=== PATIENT | female | born 1980 | race Caucasian/White ===

== ENCOUNTER 2016-10-24 19:18 | Emergency (ER) | payer OTHER ==
[~2016-10-24] VITALS: Ht 170.2 cm; Wt 59.3 kg
[2016-10-24 19:38] VITALS: BP 105/71; PULSE 87; RESP 18; TEMP 98; O2SAT 99
[2016-10-24] MEDS ORDERED: TETANUS/DIPHTHERIA TOXOID ADULT 0.5 ML VIAL IM ONE (19:45)
--- NOTE | 2016-10-24 20:04 | PD ---
HPI Chief Complaint: Laceration/Skin Injury Time Seen by Provider: 19:56 Travel History International Travel<30 days: No Contact w/Intl Traveler<30days: No Traveled to known affect area: No History of Present Illness HPI 36-year-old female presents to the emergency room for evaluation of laceration to the left third, dorsal finger that occurred just prior to arrival. Patient was trying to open a can with a butter knife when the knife slipped cutting her finger. She states it bled a lot. She washed it with alcohol and applied pressure. Last tetanus was greater than 5 years ago. Patient denies chronic medical conditions or daily medications. [facility] Past Medical History Medical History: Denies Significant Hx Diminished Hearing: No Immunizations Current: Yes Tetanus Vaccination: > 5 Years Influenza Vaccination: No ?: Not LMP: 09-27-16 Past Surgical History Surgical History: No Previous Surgery Social History Alcohol Use: Yes ([facility]) Tobacco Use: No Substance Use: No Allergies-Medications (Allergen,Severity, Reaction): Coded Allergies: No Known Allergies (Verified , 10/24/16) Reported Meds & Prescriptions Reported Meds & Active Scripts Active No Active Prescriptions or Reported Medications Review of Systems Except as stated in HPI: all other systems reviewed are Neg Physical Exam Narrative GENERAL: Well-nourished, well-developed female in no acute distress. Afebrile. Ambulatory. SKIN: Focused skin assessment warm/dry. There is a 1 cm very superficial laceration to the left third dorsal finger. It is between the PIP and DIP joints. Less than 2 second capillary refill distally. HEAD: Normocephalic. EYES: No scleral icterus. No injection or drainage. NECK: Supple, trachea midline. No JVD or lymphadenopathy. CARDIOVASCULAR: Regular rate and rhythm without murmurs, gallops, or rubs. RESPIRATORY: Breath sounds equal bilaterally. No accessory muscle use. PSYCHIATRIC: No delusional thought processes. No hallucinations. Data Data Last Documented VS Vital Signs Date Time Temp Pulse Resp B/P Pulse Ox O2 Delivery O2 Flow Rate FiO2 10/24/16 19:38 98.0 87 18 105/71 99 Orders Tetanus/Diphtheria Tox Adult (Tetanus/Di (10/24/16 19:45) MDM Medical Decision Making Medical Screen Exam Complete: Yes Emergency Medical Condition: Yes Medical Record Reviewed: Yes Differential Diagnosis Laceration versus abrasion versus tendon injury Narrative Course 36-year-old female presents to the emergency room for evaluation of laceration to the left third finger that occurred just prior to arrival. Patient cut herself with a butter knife. Tetanus updated. Physical exam reveals a 1 cm very superficial laceration on the dorsal left third digit between the proximal and distal interphalangeal joints. It is nonbleeding. Wound is amenable to glue repair. Wound care performed and wound was repaired. Patient was discharged with wound care instructions and told to follow up with primary care physician and return for worsening symptoms. She understands and agrees to plan. Diagnosis Primary Impression: Laceration of finger of left hand Qualified Code: S61.219A - Laceration of finger of left hand, initial encounter Referrals: Primary Care Physician Patient Instructions: Finger Laceration (ED), General Instructions Additional Instructions: Rest and drink plenty of fluids. Keep wound clean and dry. Apply triple antibiotic ointment when the glue and Steri-Strips fall off. Do not pick at them. Follow-up with a primary care physician. Return to the emergency room for worsening symptoms. Med/Other Pt SpecificInfo: Wound Care Scripts No Active Prescriptions or Reported Meds Disposition: 01 DISCHARGE HOME Condition: Stable Bella Leger October 24, 2016 20:04
== END 2016-10-24 20:13 | disposition home or self-care (01) ==
LOC: PHEFT 19:18
DX: S61.213A Laceration without foreign body of left middle finger without damage to nail, initial encounter (principal); Z23 Encounter for immunization; W26.0XXA Contact with knife, initial encounter; Y93.89 Activity, other specified; Y92.89 Other specified places as the place of occurrence of the external cause; Y99.8 Other external cause status
CPT/HCPCS: 12001; 90471; 90714

== ENCOUNTER → 2016-11-02 | Outpatient (CLI) | payer OTHER ==
[2016-11-02 14:55] LABS: AUTOMATED NEUTROPHIL # 5.9 TH/MM3 (1.8-7.7); BASOPHIL % 0.2 % (0.0-2.0); EOSINOPHIL % 0.4 % (0.0-4.0); HEMATOCRIT 41.8 % (35.0-46.0); HEMO FLAGS DIFF FINAL; LYMPH % 27.7 % (9.0-44.0); LYMPHOCYTE # 2.6 TH/MM3 (1.0-4.8); MONO % 8.2 % (0.0-8.0); NEUT % 63.5 % (16.0-70.0); PLATELET COUNT 225 TH/MM3 (150-450); WHITE BLOOD COUNT 9.4 TH/MM3 (4.0-11.0)
[2016-11-02 15:15] LABS: APTT (PATIENT) 29.1 SEC (24.3-30.1); INTERNATIONAL NORMALIZED RATIO 0.9 RATIO; PROTHROMBIN TIME - PATIENT 10.3 SEC (9.8-11.6)
[2016-11-02 15:22] LABS: ALT (GPT) 20 U/L (10-53); ANION GAP 6 MEQ/L (5-15); AST (GOT) 17 U/L (15-37); BICARBONATE 29.6 MEQ/L (21.0-32.0); BLOOD UREA NITROGEN 10 MG/DL (7-18); CHLORIDE 103 MEQ/L (98-107); GLOMERULAR FILTRATION RATE 76 ML/MIN (>89); GLUCOSE,FASTING 90 MG/DL (74-99); POTASSIUM 3.8 MEQ/L (3.5-5.1); SODIUM (NA) 139 MEQ/L (136-145)
[2016-11-02 15:26] LABS: ALKALINE PHOSPHATASE 64 U/L (45-117); TOTAL BILIRUBIN ADULT 0.4 MG/DL (0.2-1.0)
[2016-11-02 15:35] LABS: BHCG SCREEN QUALITATIVE LESS THAN 1 MIU/ML (0-5)
== END ==
LOC: CPRE 14:01
PROVIDERS: ATTEND Obstetrics & Gynecology Gynecologic Oncology
DX: Z01.812 Encounter for preprocedural laboratory examination (principal); D06.9 Carcinoma in situ of cervix, unspecified
CPT/HCPCS: 36415; 80053; 84703; 85025; 85610; 85730

== ENCOUNTER → 2016-11-04 | Day surgery (SDC) | payer OTHER ==
[~2016-11-04] VITALS: Ht 170.2 cm; Wt 57.3 kg
[~2016-11-04] MED LIST: ACETAMINOPHEN 1000 MG/100 ML VIAL IV ONE; CHLORHEXIDINE GLUCONATE 2 % 1 PACK (2 CLOTHS) TOPICAL PRN; DEXAMETHASONE SOD PHOS 4 MG/ML VIAL ONE; DICLOFENAC SODIUM 37.5 MG/ML VIAL IV PUSH ONE; DO NOT ADM ANY ANTICOAGULANT DRUGS PRN; FAMOTIDINE 20 MG/2 ML VIAL ONE; FERRIC SUBSULFATE 8 ML TOP SOLN ONE; INSULIN HUMAN REGULAR 1,000 UNITS/10 ML VIAL SQ PRN; KETOROLAC TROMETHAMINE 30 MG/ML (IVP) VIAL IV PUSH PRN; KETOROLAC TROMETHAMINE 30 MG/ML (IVP) VIAL ONE; LACTATED RINGER'S 1000 ML INJ 1,000 ML IV ONE; LACTATED RINGER'S 1000 ML IV PRN; METOPROLOL TARTRATE 25 MG TAB PO PRN; MIDAZOLAM HCL 2 MG/2 ML VIAL ONE; ONDANSETRON HCL 4 MG/2 ML VIAL IV PUSH ONE; PHENYLEPH/NS 1000 MCG/10 ML SYR IV ONE; POVIDONE IODINE 5% (ANTISEPSIS KIT) 4 APPLICATIONS EACH NARE PRN; PROPOFOL 200 MG/20 ML AMP IV ONE; SODIUM CHLORID 0.9% 500 ML IV PRN; ePHEDrine/NS 25 MG/5 ML SYR IV ONE; oxyCODONE/ACETAMINOPHEN 5 MG/325 MG TAB PO PRN
[2016-11-04 11:58] VITALS: BP 112/69; PULSE 90; RESP 16; TEMP 97.8; O2SAT 100
[2016-11-04 15:30] VITALS: BP 104/69; PULSE 91; RESP 16; TEMP 97.7; O2SAT 100
--- NOTE | 2016-11-04 22:38 | MP ---
cc: MARJORIE COPELAND M.D., KELLY L. MD GIERBOLINI, JOSE DATE OF SURGERY 11/04/16 PREOPERATIVE DIAGNOSIS Cervical mass at least carcinoma in situ, irregular bleeding. 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 PROCEDURE Examination under anesthesia, cervix biopsies, cystoscopy, proctoscopy. SURGEON Abi Vanessa MD PROGRAMS MANAGER [place] assignment desk assistant ANESTHESIA Laryngeal mask anesthesia ESTIMATED BLOOD LOSS 150 mL HISTORY A 36-year-old female has some irregular bleeding, had an abnormal Pap smear that showed a high-grade abnormality. Biopsy showed at least carcinoma in situ. Clinical exam was suspicious for invasive disease and there was an ultrasound that showed at least a 2 cm fullness in the posterior cervix that was suspicious for neoplasm. She has been counseled regarding these findings and the need to further clarify the presence or absence of invasive disease and get a better understanding of the extent of the problem and she presents now for that endeavor. FINDINGS On exam under anesthesia, there is no appreciably enlarged inguinal lymph nodes. External genitalia without mass or lesion. Vaginal mucosa appears normal. The cervix is quite prominent and firm. The diameter of the cervix which grossly appears to be replaced with tumor for over a majority of its surface is approximately 5 cm. The tumor is most prominent in nodule along the posterior aspect of the cervix. On rectovaginal exam, the right parametria is free. There is good mobility of the uterus and cervix with no nodularity. There is what feels like infiltration posteriorly extending from endocervix due to tumor in that location. On the left parametria there is some fixation. There is some nodularity and thickening with retraction of the cervix toward the upper vagina at the at 3 o'clock position suggesting parametrial infiltration. There is no infiltration to the pelvic sidewalls on either side. Biopsies are obtained. Frozen section confirms the clinical findings of invasive squamous cell carcinoma as discussed with Dr. Hina Nova and this is consistent with clinical findings. Cystoscopy shows normal bladder mucosa circumferentially. No mass or nodularity. The ureteral ostia are well-visualized with good efflux of urine bilaterally. Rigid proctosigmoidoscopy to a depth of 20 cm shows no mass or polyp. No invasion. No obvious abnormality in the anus or rectum. There is some extrinsic compression on the anus and rectum from the tumor just as there is some extrinsic compression on the bladder dome due to the prominent cervix and tumor. Overall, these findings are consistent with a clinical stage II B invasive squamous cell carcinoma of the cervix given left parametrial infiltration. It is also noted that the primary tumor and cervix diameter is approximately 5 cm. Systemic x-ray imaging is pending. PROCEDURE IN DETAIL The patient taken to the operating room, placed in dorsal lithotomy position after laryngeal mask anesthesia was administered. Time-out was undertaken. The patient was identified by sight recognition and hospital ID [email or web address] and the proposed procedure was reviewed and confirmed. An exam under anesthesia was performed with findings as described above. She was then prepped and draped in sterile fashion. Cervix biopsies were taken from the 6 o'clock and 3 o'clock positions of the cervix. First specimen was sent for frozen section analysis. The other was set aside for permanent histopathologic analysis. The tumor was quite hemorrhagic and vaginal packing was undertaken with two Ray-Daniel sponges. Cystoscopy was performed using a 30 degree scope with findings as described above. The bladder was then drained and proctosigmoidoscopy was performed using a rigid proctosigmoidoscope with findings as described above. Change of sterile gloves was undertaken. Once we confirmed from pathology that the diagnosis was confirmed, attention was directed toward hemostasis. The biopsy sites were rendered hemostatic with copious amounts of Monsel's solution and topical pressure and when the bleeding had stopped to ensure to continue to help facilitate continued hemostasis. A piece of surgeon cell was placed back and forth over the surface of the cervical tumor on all surfaces and was left in place. Speculum was removed. The vagina was irrigated. All sites were completely hemostatic. There were no remaining foreign objects in the vagina, other than the intentionally placed Surgicel and preliminary and final counts were correct. Radiation oncology was consulted to see if they could come to the to the operating room for preliminary exam based on these findings, however, no radiation oncologists were immediately available. Accordingly, it was felt that all reasonable surgical objectives had been completed. She was returned to dorsal supine position and was pending reversal of anesthesia when I left the operating room to precede her to the Post Anesthesia Care Unit. MD DANNY Yost/ /2:13 PM /10:14 PM
== END | disposition home or self-care (01) ==
LOC: HSDC 11:33
PROVIDERS: ATTEND Obstetrics & Gynecology Gynecologic Oncology
DX: C53.0 Malignant neoplasm of endocervix (principal); F17.200 Nicotine dependence, unspecified, uncomplicated
CPT/HCPCS: 45300; 52000; 57500; 86850; 86900; 86901; 88305; 88331; J0131; J1100; J1130; J1885; J2250; J2370; J2405; J3010; J7120

== ENCOUNTER 2016-11-11 06:09 | Day surgery (SDC) | payer OTHER ==
[~2016-11-11] VITALS: Ht 170.2 cm; Wt 59.1 kg
[2016-11-11 06:37] VITALS: BP 114/74; PULSE 85; RESP 20; TEMP 98.6; O2SAT 99
[2016-11-11] MEDS ORDERED: ceFAZolin 2 GM PREMIX 50 ML - implanted port/tunneled catheter insertion IV SCH (07:15)
[2016-11-11] MEDS ORDERED: VANCOMYCIN 1000 MG/NS 250 ML - implanted port/tunneled catheter IV SCH ×2 (07:15)
[2016-11-11] MEDS ORDERED: CHLORHEXIDINE GLUCONATE 2 % 1 PACK (2 CLOTHS) TOPICAL SCH (07:15)
[2016-11-11] MEDS ORDERED: POVIDONE IODINE 5% (ANTISEPSIS KIT) 4 APPLICATIONS EACH NARE SCH (07:15)
[2016-11-11] MEDS ORDERED: SODIUM CHLORIDE 0.9% 1000 ML IV SCH (07:15)
[2016-11-11] MEDS ORDERED: fentaNYL CITRATE 250 MCG/5 ML AMP ONE (07:44)
[2016-11-11] MEDS ORDERED: MIDAZOLAM HCL 5 MG/5 ML VIAL ONE (07:44)
[2016-11-11] MEDS ORDERED: LIDOCAINE 1%/EPINEPHrine 1:100,000 SOLN 30 ML VIAL ONE (07:54)
[2016-11-11 08:50] VITALS: BP 105/62; PULSE 90; RESP 20; TEMP 97.9; O2SAT 96
[2016-11-11 09:05] VITALS: BP 106/60; PULSE 73; RESP 16; O2SAT 97
[2016-11-11 09:35] VITALS: BP 100/64; PULSE 81; RESP 16; O2SAT 98
--- NOTE | 2016-11-11 09:39 | PD.RAD ---
Post Procedure Progress Note Pre Procedure Diagnosis: (1) Cervical cancer Post Procedure Diagnosis: (1) Cervical cancer Procedure Date: Nov 11, 2016 Supervising Radiologist: Usama Barth Proceduralist/Assist: Kathie Jefferson, RT(R), Agnieszka Petersen RT(R)(CV) Anesthesia: Conscious Sedation Plan of Activity Patient to Unit: ROPU Patient Condition: Good See PACS Report for procedural detail/treatment Usama Barth MD Nov 11, 2016 09:39
[2016-11-11] MEDS ORDERED: SODIUM CHLORIDE 0.9% FLUSH 10 ML FLUSH IVF PRN (09:45)
[2016-11-11 10:05] VITALS: BP 95/58; PULSE 74; RESP 16; O2SAT 97
--- NOTE | 2016-11-11 15:53 | RADRPT ---
EXAM DATE/TIME: 11/11/2016 08:16 [facility] COMPARISON: No previous studies available for comparison. INDICATIONS : Patient with cervical cancer. Will be having chemotherapy. MEDICAL HISTORY : 1.cervical cancer SURGICAL HISTORY : 1. wisdom teeth removed 2.cervical bx. ENCOUNTER: Initial ACUITY: 1 week PAIN SCORE: 0/10 FLUORO TIME: 0.7 minutes IMAGE SERIES: 0 SEDATION TIME: 45 minutes ACCESS: Right internal jugular vein SEDATION: 1.) 4 mg midazolam (Versed) IV 2.) 200 mcg fentanyl (Sublimaze) IV Prophylactic antibiotics were administered with appropriate pre-procedure timing. Vancomycin within 2 hours of procedure, Ancef (or alternative) within 1 hour of procedure. DEVICE: 1. 8 [place] single lumen angioDynamics power port PROCEDURE : 1. Continuous pulse oximetry and EKG monitoring. 2. Intravenous conscious sedation. 3. Ultrasound guidance for venous access. 4. Fluoroscopic guided implantable central venous port placement. The patient was placed supine. The neck was prepped in sterile fashion. Full sterile technique was u sed, including cap, mask, sterile gloves and gown, and a large sterile sheet. Hand hygiene and 2% ch lorhexidine Betadine was utilized per protocol for cutaneous antisepsis with appropriate dry time for site. The skin and subcutaneous tissues were infiltrated with local anesthetic solution. Under direct ultrasound guidance, central venous access was accomplished in the targeted vessel. The ultrasound images depicting access guidance were stored and saved to PACS for permanent record. A s ubcutaneous pocket was created using blunt dissection. The port was introduced to the pocket. The c atheter tubing was fed through a subcutaneous tunnel to the venotomy site. The catheter tubing was c ut to a suitable length and then was introduced through a valved Peel-Away sheath and positioned with catheter tubing tip at the cavo-atrial junction level. The pocket incision was closed with subcutic ular Vicryl suture. Steri-Strips were applied. The port was flushed and locked with heparin solutio n per protocol. Sterile dressing was applied to the site. The patient tolerated the procedure well. Conscious sedation was performed with the prescribed dosages and duration as above in the presence of an independent trained radiology nurse to assist in the monitoring of the patient. EKG and oximetry remained stable throughout the procedure. The patient tolerated the procedure well and there were no complications. The patient was sent to post anesthesia recovery in stable condition. CONCLUSION: Uncomplicated ultrasound and fluoroscopic guided implanted central venous port catheter placement as described in detail above. An 8 E[place]an Power port was placed. Usama Barth MD on November 11, 2016 at 15:50 Board Certified Radiologist. This report was verified electronically.
== END 2016-11-11 10:59 | disposition home or self-care (01) ==
LOC: HROP 06:09 → HRIP 06:10 → HROP 10:59
PROVIDERS: ATTEND Obstetrics & Gynecology Gynecologic Oncology
DX: C53.9 Malignant neoplasm of cervix uteri, unspecified (principal)
CPT/HCPCS: 36561; 76937; 77001; 99152; 99153; C1788; J0690; J1642; J2250; J3010; J3370; J7030; J7050

== ENCOUNTER 2016-11-15 08:21 | Observation (INO) | payer OTHER ==
[~2016-11-15] VITALS: Ht 170.2 cm; Wt 59.5 kg
[2016-11-15] MEDS: HYDROmorphone HCL PF 1 MG/ML VIAL IV PUSH PRN ×2 (05:35→17:35)
[2016-11-15 08:55] VITALS: BP 110/65; PULSE 82; RESP 16; TEMP 98.7; O2SAT 100
[2016-11-15] MEDS ORDERED: CHLORHEXIDINE GLUCONATE 2 % 1 PACK (2 CLOTHS) TOPICAL PRN (09:00)
[2016-11-15] MEDS ORDERED: METOPROLOL TARTRATE 25 MG TAB PO PRN (09:00)
[2016-11-15] MEDS ORDERED: HEPARIN SODIUM - SQ 10,000 UNITS/ML VIAL SQ SCH (09:00)
[2016-11-15] MEDS ORDERED: ceFAZolin 1,000 MG/NS 100 ML IV SCH ×2 (09:00)
[2016-11-15] MEDS ORDERED: POVIDONE IODINE 5% (ANTISEPSIS KIT) 4 APPLICATIONS EACH NARE PRN (09:00)
[2016-11-15] MEDS ORDERED: SODIUM CHLORID 0.9% 500 ML IV PRN (09:00)
[2016-11-15] MEDS ORDERED: INSULIN HUMAN REGULAR 1,000 UNITS/10 ML VIAL SQ PRN (09:00)
[2016-11-15] MEDS ORDERED: LACTATED RINGER'S 1000 ML IV PRN (09:00)
[2016-11-15] MEDS ORDERED: ePHEDrine/NS 25 MG/5 ML SYR IV ONE (10:05)
[2016-11-15] MEDS ORDERED: ONDANSETRON HCL 4 MG/2 ML VIAL IV PUSH ONE (10:05)
[2016-11-15] MEDS ORDERED: PROPOFOL 200 MG/20 ML AMP IV ONE (10:05)
[2016-11-15] MEDS ORDERED: VECURONIUM BROMIDE 10 MG VIAL IV ONE (10:06)
[2016-11-15] MEDS ORDERED: NORMOSOL R INJ 1,000 ML IV ONE (10:07)
[2016-11-15] MEDS ORDERED: FAMOTIDINE 20 MG/2 ML VIAL ONE (10:49)
[2016-11-15] MEDS ORDERED: ARTIFICIAL TEARS OPTH OINT 3.5 APPLIC/3.5 GM TUBO ONE (10:49)
[2016-11-15] MEDS ORDERED: ACETAMINOPHEN 1000 MG/100 ML VIAL IV ONE (10:49)
[2016-11-15] MEDS ORDERED: DEXAMETHASONE SOD PHOS 4 MG/ML VIAL ONE (10:50)
[2016-11-15] MEDS ORDERED: HYDROmorphone HCL PF 2 MG/ML VIAL ONE (10:50)
[2016-11-15] MEDS ORDERED: MIDAZOLAM HCL 2 MG/2 ML VIAL ONE (10:50)
[2016-11-15] MEDS ORDERED: SUGAMMADEX SODIUM 200 MG/2 ML VIAL IV PUSH ONE ×2 (10:50)
[2016-11-15] MEDS ORDERED: LIDOCAINE 1.5%/EPINEPHrine 1:200,000 PF SOLN 30 ML AMP INFIL ONE (12:07)
[2016-11-15] MEDS ORDERED: ceFAZolin INJ 1,000 MG VIAL IV ONE (13:55)
[2016-11-15] MEDS ORDERED: fentaNYL CITRATE 250 MCG/5 ML AMP ONE (14:58)
[2016-11-15] MEDS ORDERED: oxyCODONE/ACETAMINOPHEN 5 MG/325 MG TAB PO PRN (15:00)
[2016-11-15] MEDS ORDERED: SODIUM CHLORIDE 0.9% FLUSH 10 ML FLUSH IV FLUSH PRN (15:00)
[2016-11-15] MEDS ORDERED: LORazepam 0.5 MG TAB PO PRN (15:00)
[2016-11-15] MEDS ORDERED: DO NOT ADM ANY ANTICOAGULANT DRUGS PRN (15:00)
[2016-11-15] MEDS ORDERED: ONDANSETRON HCL 4 MG/2 ML VIAL IVP PRN (15:00)
[2016-11-15] MEDS ORDERED: diphenhydrAMINE HCL 25 MG CAP PO PRN (15:00)
[2016-11-15] MEDS: D5-1/2 NS + KCL 20 MEQ INJ 1,000 ML IV SCH ×2 (15:05→21:04)
[2016-11-15] MEDS ORDERED: *morphine SULFATE 8 MG/ML PERIprocedure ONLY ONE ×3 (15:14→15:44)
[2016-11-15] MEDS: KETOROLAC TROMETHAMINE 30 MG/ML (IVP) VIAL IVP SCH ×2 (15:16→21:04)
[2016-11-15 16:00] VITALS: BP 104/61; PULSE 96; RESP 20; TEMP 96.8; O2SAT 96
[2016-11-15 20:00] VITALS: BP 100/63; PULSE 89; RESP 18; TEMP 97; O2SAT 99
[2016-11-15] MEDS: SODIUM CHLORIDE 0.9% FLUSH 10 ML FLUSH IV FLUSH SCH (21:00)
[2016-11-15] MEDS: oxyCODONE/ACETAMINOPHEN 5 MG/325 MG TAB PO PRN (21:02)
[2016-11-16] VITALS: BP 132/65; PULSE 110; RESP 20; TEMP 97.5; O2SAT 95
[2016-11-16 01:00] VITALS: BP 97/59; PULSE 77; RESP 16; TEMP 97.5; O2SAT 99
[2016-11-16] MEDS: oxyCODONE/ACETAMINOPHEN 5 MG/325 MG TAB PO PRN ×3 (01:06→09:40)
[2016-11-16] MEDS: D5-1/2 NS + KCL 20 MEQ INJ 1,000 ML IV SCH (05:10)
[2016-11-16 05:12] VITALS: BP 101/65; PULSE 84; RESP 18; TEMP 97.9; O2SAT 100
[2016-11-16] MEDS: KETOROLAC TROMETHAMINE 30 MG/ML (IVP) VIAL IVP SCH ×2 (05:12→09:32)
[2016-11-16 06:57] LABS: AUTOMATED NEUTROPHIL # 9.2 TH/MM3 (1.8-7.7); BASOPHIL % 0.1 % (0.0-2.0); EOSINOPHIL % 0.1 % (0.0-4.0); HEMATOCRIT 33.8 % (35.0-46.0); LYMPH % 15.6 % (9.0-44.0); LYMPHOCYTE # 1.9 TH/MM3 (1.0-4.8); MEAN CELL VOLUME 91.9 FL (80.0-100.0); MEAN CORPUSCULAR HEMOGLOBIN 29.9 PG (27.0-34.0); MEAN CORPUSCULAR HGB CONC 32.6 % (32.0-36.0); MONO % 9.3 % (0.0-8.0); NEUT % 74.9 % (16.0-70.0); PLATELET COUNT 200 TH/MM3 (150-450); RED BLOOD COUNT 3.68 MIL/MM3 (4.00-5.30); RED CELL DISTRIBUTION WIDTH 12.6 % (11.6-17.2); WHITE BLOOD COUNT 12.2 TH/MM3 (4.0-11.0)
[2016-11-16 06:59] LABS: HEMO FLAGS AUTO DIFF
[2016-11-16 07:18] LABS: POTASSIUM 3.9 MEQ/L (3.5-5.1)
[2016-11-16 08:53] VITALS: BP 102/70; PULSE 75; RESP 20; TEMP 97.8; O2SAT 94
[2016-11-16] MEDS: SODIUM CHLORIDE 0.9% FLUSH 10 ML FLUSH IV FLUSH SCH (09:33)
[2016-11-16 09:38] LABS: BANDS 9 % (0-6); NEUTROPHIL # MANUAL DIFF 9.4 TH/MM3 (1.8-7.7); POLYS (SEG NEUTROPHILS) 68 % (16-70); SCAN/DIFF FINAL DIFF MANUAL; WBC DIFF SAMPLE 100
[2016-11-16 09:39] LABS: PLATELET ESTIMATE SMEAR NORMAL (NORMAL); PLATELET MORPHOLOGY NORMAL (NORMAL)
[2016-11-16 12:08] VITALS: BP 102/67; PULSE 79; RESP 20; TEMP 98.4; O2SAT 100
--- NOTE | 2016-11-17 07:36 | MP ---
cc: MARJORIE COPELAND KELLY L. MD GIERBOLINI, JOSE R. M.D. DATE OF SURGERY 11/15/2016 PREOPERATIVE DIAGNOSIS 1. Stage IIB squamous cell carcinoma of the cervix. 2. Forthcoming radiation chemotherapy. 3. Desires to preserve ovarian function. POSTOPERATIVE DIAGNOSIS 4. Stage IIB squamous cell carcinoma of the cervix. 5. Forthcoming radiation chemotherapy. 6. Desires to preserve ovarian function. PROCEDURE Robotic-assisted laparoscopic bilateral ovarian transposition. SURGEON Princess Vanessa MD NETWORK OPERATIONS SPECIALIST [place] clinical nursing assistant ANESTHESIA General endotracheal anesthesia ESTIMATED BLOOD LOSS 75 cc URINE OUTPUT 150 cc IV FLUIDS 1800 cc HISTORY This is a 36-year-old female with stage IIB squamous cell carcinoma of the cervix for which pelvic radiation and galena based chemotherapy had been recommended. She has been counseled regarding the loss of ovarian function from pelvic radiation as well as the potential ability to preserve ovarian function and avoid premature menopause with ovarian transposition. The procedures has been explained. She understands that the surgical manipulation and the radiation could still prevent premature ovarian failure, but there is also a good probability that ovarian function can be preserved if the ovaries are left intact on the blood supply, detached from the uterus and relocated above the pelvic brim and above the radiation field. Questions were answered. She expressed a good understanding and would like to move forward with surgery. FINDINGS As previously described on exam under anesthesia, there was no overt neoplastic appearing adenopathy. No peritoneal implants. The lower uterine segment and cervix were quite prominent and consistent with known tumor. The uterus itself appeared normal. PROCEDURE The patient taken to the operating room, placed in the dorsal lithotomy position after general endotracheal anesthesia was administered. Time-out was undertaken. The patient was identified by sight recognition and hospital ID bracelet and the proposed procedure was reviewed and confirmed. She was carefully positioned in padded [place] stirrups. Her arms were padded and secured to the sides. She was further secured to the operating table with egg crate padding and tape in a cross chest over the shoulder fashion. All sites noted be properly aligned with no malalignments or pressure points. She was prepped in a sterile fashion, draped below the waist, Shabazz catheter was placed in the bladder. A change of sterile gloves was undertaken and we completed draping in anticipation of laparoscopy and confirmed that an orogastric tube was in the stomach on suction. With manual elevation of the abdominal wall, a 5-mm cannula placed in the left upper quadrant. Carbon dioxide gas was insufflated and an atraumatic entry was confirmed. Under laparoscopic visualization, the 12 mm cannula was placed in the midline above the umbilicus and an 8 mm cannula placed in the right upper quadrant and left lateral quadrant and the original five was exchanged for an 8-mm cannula. She was placed in steep Trendelenburg position. Small bowel was folded back on its mesenteric root, anatomy was surveyed with findings as described above. Three Ray-Daniel sponges were placed at the root of the small bowel mesentery. The Robotic system was brought into the operative field and attached in the usual fashion. Monopolar scissors, fenestrated bipolar forceps and Prograsp manipulators were placed in arms #1, 2 and 3 respectively and I took my place at the surgeon's console. The right retroperitoneal dissection was carried out extending from the round ligament to above the pelvic brim. Dissection was carried posteriorly until the right ureter was identified. The right infundibulopelvic ligament was isolated. The intervening peritoneum was opened and the peritoneal attachments were dissected well above the pelvic brim proximally. Distally, the right utero-ovarian ligament was isolated and cauterized thoroughly and three vascular clips were placed on the obliterated utero-ovarian ligament via laparoscopic area development consultant. Attention was directed toward the left side where the left retroperitoneal dissection was carried out from the round ligament, extending well above the pelvic brim. The peritoneal and adjacent attachments were mobilized well above the pelvic brim as the left ureter was identified and the infundibulopelvic ligament was isolated distally as well. The ureter was identified and remained posterior as the gonadal vessels were mobilized anteriorly. The left utero-ovarian ligament was isolated, cauterized and then clip area development consultant was used to place three vascular clips on the obliterated utero-ovarian ligament. The purpose of the clips is to help identify the anatomical location of the ovaries after they had been transposed Now the utero-ovarian ligaments were transected bilaterally. The ovaries were rotated above the pelvic brim to the ipsilateral paracolic gutters and were positioned in a fashion that there was no twisting, torsion or malalignment or stretch on the gonadal vessels. The ovaries were now secured into their transpose position with interrupted [id number] 0 Vicryl sutures between the peritoneum, subperitoneal tissue and the obliterated utero-ovarian ligament with multiple low sutures tied securely. This was accomplished bilaterally. The ovaries were inspected. Good blood supply. No compromise to the blood supply, secure in the position to avoid torsion and well above the pelvic brim to avoid the radiation field. At this point, it was felt that all reasonable surgical objectives had been completed. The Robotic instruments were removed. The robotic system was disengaged from the operative field. I reentered the bedside under sterile condition. Each of the three Ray-Daniel sponges were removed through the 12-mm cannula and all sites were inspected and noted to be hemostatic and attention was directed toward closing. Preliminary counts were correct. The 12 mm fascial defect was closed with interrupted 0 Vicryl sutures using a needle pass apparatus tied securely. The fascia was airtight and hemostatic. The remaining cannulas were withdrawn. Carbon dioxide gas was removed. 3-0 Vicryl subcutaneous, 3-0 Vicryl subcuticular and Steri-Strips were used to close these incisions. She was returned to dorsal supine position. Final counts were correct. She was pending reversal of anesthesia when I left the operating room to precede her to the Post Anesthesia Care Unit and to have the opportunity to speak with family members who were waiting in the surgical waiting area. MD DANNY Yost/MARITZA /6:08 AM /7:25 AM
--- NOTE | 2016-11-20 15:56 | MD ---
cc: MARJORIE COPELAND KELLY L. MD GIERBOLINI, JOSE R. M.D. ADMISSION DATE: 11/15/2016 DISCHARGE DATE: 11/16/2016 PROCEDURE: 11/15/2016 Robotic-assisted laparoscopic bilateral ovarian transposition. DIAGNOSIS Stage IIB squamous cell carcinoma of the cervix with desire to preserve ovarian function. HOSPITAL COURSE She did well during early postop period other than pain associated with surgery which was managed with pain medication. She is hemodynamically stable. She is tolerating oral intake. Shabazz catheter removed pending voiding. Ins and Outs 2650/1500. Labs this morning show an H&H of 11.0 and 33.8, platelet count 200, white count 12.2. Electrolytes essentially normal, potassium 3.9, BUN and creatinine 6 and 0.63. PHYSICAL EXAMINATION VITAL SIGNS: Afebrile, pulse 77-93, respirations 16-20, blood pressure 97-107/59-65, O2 saturations greater than or equal to 99%. GENERAL: Alert and oriented x3, uncomfortable consistent with surgery, tired from anesthesia but otherwise no acute distress and doing well. LUNGS: Clear. CARDIOVASCULAR: Regular rate and rhythm. ABDOMEN: Soft. Incisions clean and dry. EXTREMITIES: Nontender. ASSESSMENT Postop day #1 doing well in early postoperative period. Findings at the time of surgery reviewed. Activities and restrictions discussed. The need for her to followup with Dr. Lamas as soon as possible to initiate radiation therapy is again emphasized and to insure that we are aware of her treatment start date so that we may also coordinate initiation of chemotherapy. Questions were answered. She expressed good understanding. PLAN Anticipate discharge to home. Our office number is made available. She is to contact our office to schedule a postop follow-up in two weeks. She is to contact Dr. Lamas's office to insure she has a followup first available hopefully this week to move forward with treatment. Activities and restrictions again discussed. She expressed good understanding and anticipate discharge to home. She has no preexisting medication. She will have a prescription for Percocet. MD DANNY Yost/LORIE /7:28 AM /3:42 PM
== END 2016-11-16 11:57 | disposition home or self-care (01) ==
LOC: HSDC 08:21 → EDSTATUS 12:00 → HSDI 14:51 → HOCA 16:10
PROVIDERS: ADMIT Obstetrics & Gynecology Gynecologic Oncology; ATTEND Obstetrics & Gynecology Gynecologic Oncology
DX: C53.9 Malignant neoplasm of cervix uteri, unspecified (principal)
CPT/HCPCS: 58679; 80048; 85007; 85027; 86850; 86900; 86901; G0378; J0131; J0690; J1100; J1170; J1644; J1885; J2250; J2270; J2405; J3010; J3480; J7120

== ENCOUNTER 2017-04-15 06:11 | Day surgery (SDC) | payer OTHER ==
[~2017-04-15] VITALS: Ht 170.2 cm; Wt 57.7 kg
[2017-04-15 06:46] VITALS: BP 107/75; PULSE 73; RESP 20; TEMP 97.8; O2SAT 97
[2017-04-15] MEDS ORDERED: ceFAZolin 2 GM PREMIX 50 ML IV SCH (07:15)
[2017-04-15] MEDS ORDERED: SODIUM CHLOR 0.9% 1000 ML INJ 1,000 ML IV SCH (07:15)
[2017-04-15] MEDS ORDERED: LIDOCAINE 1%/EPINEPHrine 1:100,000 SOLN 20 ML VIAL ONE (08:07)
[2017-04-15 08:45] VITALS: BP 104/63; PULSE 75; RESP 18; TEMP 97.7; O2SAT 99
--- NOTE | 2017-04-15 08:52 | PD.RAD ---
Post Procedure Progress Note Pre Procedure Diagnosis: (1) Cervical cancer Post Procedure Diagnosis: (1) Cervical cancer Procedure Date: Apr 15, 2017 Supervising Radiologist: Jason Gillespie JR Proceduralist/Assist: Brian Briceno, RT(R), Clay Lizarraga RT(R) Anesthesia: Local Plan of Activity Patient to Unit: ROPU Patient Condition: Good See PACS Report for procedural detail/treatment Central Venous Access Device Procedure 1 Right Internal Jugular Infusaport Removal single lumen Findings: Port removed without difficulty Plan F/U with IR or a physician in 10-14 days for a site check Jr. Jose Miguel,Jason Lenz MD Apr 15, 2017 08:52
[2017-04-15 09:00] VITALS: BP 103/70; PULSE 75; RESP 18; O2SAT 97
--- NOTE | 2017-04-15 09:01 | RADRPT ---
EXAM DATE/TIME: 04/15/2017 00:00 [facility] COMPARISON: No previous studies available for comparison. INDICATIONS : Patient presents with cervical cancer and is in need of port removal due to chemotherapy treatment co mpletion. MEDICAL HISTORY : Hx of cervical cancer. SURGICAL HISTORY : Cervical biopsy Right port placement Laproscopic ovarian transposition ENCOUNTER: Subsequent ACUITY: 7-11 months PAIN SCORE: 0/10 LOCATION: N/A SEDATION TIME: 30 minutes 2.) 100 mcg fentanyl (Sublimaze) IV Prophylactic antibiotics were administered with appropriate pre-procedure timing. Vancomycin within 2 hrs of procedure, Ancef (or alternative) within 1 hr of procedure. PROCEDURE : 1. Removal of [id number]. 2. Continuous EKG and oximetry monitoring. The risk, benefits and potential complications of Edifvi-t-[id number] removal were discussed. Written conse nt was obtained. The patient was given the option of using local anesthetic only versus conscious sedation. She chose to use local anesthetic only with the option of conscious sedation if needed. The patient was placed supine. The chest wall was prepped in sterile fashion. Full sterile techniqu e was used, including cap, mask, sterile gloves and gown, and a large sterile sheet. Hand hygiene an d 2% chlorhexidine and/or Betadine/alcohol prep was utilized per protocol for cutaneous antisepsis. The skin and subcutaneous tissues were infiltrated with local anesthetic solution. A small incision w as made, the subcutaneous pocket was opened. The port was dissected from the subcutaneous tissues and easily removed in one piece. The pocket incision was closed with subcuticular Vicryl suture. Steri -Strips were applied. Local anesthetic only was performed. EKG and oximetry remained stable throughout the procedure. The patient tolerated the procedure well and there were no complications. The patient was sent to post a [facility] recovery in stable condition. CONCLUSION: Uncomplicated port removal as above. Jason Gillespie Jr., MD on April 15, 2017 at 8:55 Board Certified Radiologist. This report was verified electronically.
[2017-04-15 09:15] VITALS: BP 109/68; PULSE 77; RESP 18; O2SAT 97
== END 2017-04-15 09:30 | disposition home or self-care (01) ==
LOC: HROP 06:11 → HRIP 06:15 → HROP 09:30
PROVIDERS: ATTEND Internal Medicine Hematology & Oncology
DX: Z45.2 Encounter for adjustment and management of vascular access device (principal); C53.9 Malignant neoplasm of cervix uteri, unspecified
CPT/HCPCS: 36590; 99152; 99153; J0690; J3010; J7030